=== PATIENT | male | born 1980 | race Caucasian/White ===

== ENCOUNTER → 2018-05-11 12:38 | Outpatient (CLI) | payer BC, SELFPAY ==
--- NOTE | 2018-05-11 12:41 | DI.US.S_ITS ---
PROCEDURE: US SCROTUM INDICATIONS: SCROTAL EDEMA TECHNIQUE: Real-time scanning was performed of the scrotum and testicles, with image documentation. Color and pulse Doppler interrogation was performed of both testicles. COMPARISON: None. FINDINGS: Right: Testicle is normal in size at 3.5 x 1.6 x 2.2 cm, and homogenous in echotexture. Epididymis is normal in overall size and morphology. No hydrocele or varicoceles. Overlying scrotal skin is normal in thickness. Left: Testicle is normal in size at 2.9 x 1.9 x 3.1 cm, and homogeneous in echotexture. Epididymis is normal in overall size and morphology. No hydrocele or varicoceles. Overlying scrotal skin is normal in thickness. Doppler: Color and pulse Doppler demonstrate normal and symmetric arterial flow in both testicles. There is a heterogeneous mass present within the midline of the scrotum and lateral alveolus indeterminate on the basis of this study measuring 9.9 x 5.5 8.3 cm. Findings could be related to fat-containing hernia. IMPRESSION: 1. Normal testicles. 2. Large mass within the mid scrotum as above which could be related to fat-containing hernia with extension of the fat-containing hernia into the left hemiscrotum. If indicated CT of the lower abdomen and pelvis could be performed. Dictated by: Marcelo PARRA Interpreted: Babatunde Gatica MD on 05/11/2018 at 13:55 Approved by: Babatunde Gatica M.D. on 05/11/2018 at 16:33
== END ==
PROVIDERS: Visit Provider Family Medicine
DX: N50.89 Other specified disorders of the male genital organs (principal)
CPT/HCPCS: 76870

== ENCOUNTER 2018-06-14 08:15 | Day surgery (SDC) | payer BC, SELFPAY ==
[2018-06-01 09:49] VITALS: BMI 24.9
[2018-06-14 08:42] VITALS: BP 114/79; PULSE 87; RESP 16; TEMP 37; O2SAT 98; BMI 24.7
[2018-06-14] MEDS: LACTATED RINGERS 1,000 ML 42 ML IV (08:50)
--- NOTE | 2018-06-14 09:16 | PM.PREOP ---
Pre-operative Note Interval Note Pre-op Check: Yes History & Physical Reviewed by Physician and Yes Exam Performed Changes: No
[2018-06-14] MEDS: MIDAZOLAM 2 MG/2 ML VIAL IV (09:22)
[2018-06-14] MEDS: CEFAZOLIN 2 GM/100 ML FROZ.PIGGY IV (09:25)
--- NOTE | 2018-06-14 09:27 | SUR.PREOP ---
midazolam given per order for anxiety, pt taken soon fter to or.
--- NOTE | 2018-06-14 09:47 | SUR.OPER ---
Supine on padded OR bed, head on pillow, arms secured on padded arm boards at <90 degrees abduction, legs uncrossed, safety belt at thigh, tape over blanket over lower legs.
[2018-06-14] MEDS: BUPIVACAINE 0.5% (PF) VIAL 30 ML INJ (09:53)
--- NOTE | 2018-06-14 10:56 | P.OP_ITS ---
Operative Date/Time/Diagnoses Date of procedure: 06/14/18 Time of procedure: 10:51 Pre-op diagnosis: Left inguinal hernia reducible Post-op diagnosis: same (Indirect left inguinal hernia) Procedure & Clinicians Procedure: Repair with plug and patch technique Same procedure as scheduled: Yes Indications: Symptomatic left inguinal hernia with sac extending into the scrotum. Surgeon: Spencer Ann Click Yes if Unassisted: Yes Anesthesia Type: General Operative Notes Findings: Large indirect sac containing omentum. The floor was quite weak and medially. Closure Type: primary Specimen(s): none sent Implants & Drains: Mesh Procedure in detail: The patient was placed supine on the operating room table and underwent general LMA anesthesia. He was prepped and draped in the usual fashion. A transverse incision was made overlying the internal ring and carried down to the level of the external oblique. The external oblique was opened parallel with its fibers through the external ring. The cord structures were elevated. The cremaster was opened proximally and search made for an indirect sac.[a large sac was found and opened. It contained a large amount of omentum which was reduced. The sac was dissected proximally to the level of the deep epigastric vessels were was suture ligated with 2 0 silk. Small amount of local was injected just above the tie. The stump was allowed to retract. A medium plug was crit placed in the defect created by the sac and tacked into place with interrupted Ethibond suture.]. The floor was examined and was found to be[ markedly attenuated.]. A patch was placed across the floor and tacked at the pubic tubercle, the posterior lamella of the anterior rectus sheath, the ilioinguinal ligament, and superior lateral to the cord. The opening was modified as necessary to prevent tight constriction of the cord. The cremaster was closed with 3 0 Polysorb. Sutures of 0 Tycron were used to secure the mesh. The external oblique was closed with a running 3 0 Polysorb. The subcu was closed with interrupted 4 0 Polysorb. The skin was closed with a running 4 0 Polysorb subcuticular stitch and Steri-Strips. Dressing was applied, the patient was awakened, and the patient was taken to the recovery area in good condition. Complications: none Condition: stable Disposition: PACU
[2018-06-14 10:58] VITALS: BP 116/88; PULSE 83; RESP 12; TEMP 36; O2SAT 96
[2018-06-14 11:03] VITALS: BP 116/81; PULSE 83; RESP 11; O2SAT 97
[2018-06-14] MEDS: MEPERIDINE 50 MG/ML 25 MG IV (11:04)
[2018-06-14 11:08] VITALS: BP 113/81; PULSE 82; RESP 12; TEMP 36.4; O2SAT 97
[2018-06-14 11:24] VITALS: BP 123/90; PULSE 82; RESP 16; TEMP 36; O2SAT 96
[2018-06-14] MEDS: OXYCODONE/ACETAMINOPHEN 5/325 TABLET 1 TAB PO (11:30)
[2018-06-14 11:46] VITALS: BP 119/84; PULSE 79; RESP 16; TEMP 36.1; O2SAT 98
== END 2018-06-14 11:49 | disposition home or self-care (01) ==
PROVIDERS: Visit Provider Specialist
PROC: (CPT 49505; principal; 2018-06-14 09:15)
DX: K40.90 Unilateral inguinal hernia, without obstruction or gangrene, not specified as recurrent (principal); Z72.0 Tobacco use; G43.909 Migraine, unspecified, not intractable, without status migrainosus
CPT/HCPCS: 49505; C1781; J0690; J1100; J2175; J2250; J2405; J2704; J3010

== ENCOUNTER 2019-10-15 12:31 | Emergency (ER) | payer BC, SELFPAY ==
[2019-10-15 12:35] VITALS: BP 116/78; PULSE 85; RESP 12; TEMP 36.9; O2SAT 99
--- NOTE | 2019-10-15 12:45 | ED.CHESTPAIN ---
HPI - Chest Pain General Chief Complaint: Chest Pain Stated Complaint: CHEST SHOULDER AND NECK PAIN Time Seen by Provider: 10/15/19 12:36 Source: patient Mode of arrival: Ambulatory Limitations: no limitations History of Present Illness HPI narrative: Patient comes emergency department complaining of pain under his left breast for about the last week. He states that it started when he woke up 1 morning about a week ago with a tight sharp pain going down the left neck and into his shoulder. He patient states that the pain spread to his chest wall, as well. He states that other than occasional bursts of pain, the neck pain has resolved, as has the shoulder pain. However, the pain under his left breast has persisted. He patient states it's worse with certain positions and sometimes with deep breaths. He denies a cough or fever. He denies shortness of breath, other than sometimes taking shallow breaths to avoid hurting his chest more. He he states it hurts more to move his arms certain ways. The patient denies any swelling or pain in his lower extremities. He states that he has no history of DVT or PE. He has not been ill with any respiratory symptoms lately. No other complaints at this time. No direct trauma to the area. No repetitive motion. Related Data Home Medications Medication Instructions Recorded Confirmed zolmitriptan 5 mg PO SEEINSTR PRN 06/01/18 06/27/18 Previous Rx's Medication Instructions Recorded citalopram 20 mg tablet 20 mg PO DAILY #30 tab 10/04/19 hydrocodone-acetaminophen 1 tab PO Q4H PRN #5 tab 10/15/19 Allergies Allergy/AdvReac Type Severity Reaction Status Date / Time sumatriptan [From Imitrex] AdvReac Severe Pain - Verified 04/26/19 09:16 back of neck cillins AdvReac Mild nausea Uncoded 04/26/19 09:16 Review of Systems Constitutional Constitutional: Denies chills, Denies fatigue, Denies fever(s), Denies frequent falls, Denies lethargy and Denies weakness Eyes Eyes: Denies change in vision, Denies eye discharge, Denies irritation and Denies loss of vision ENT Ears, Nose, Mouth, and Throat: Denies change in voice, Denies dizziness, Reports neck pain, Denies sore throat and Denies throat swelling Cardiovascular Cardiovascular: Reports chest pain, Denies irregular heart rhythm, Denies lightheadedness, Denies palpitations, Denies dyspnea, Denies dyspnea on exertion and Denies orthopnea Respiratory Respiratory: Denies cough, Denies dyspnea, Denies dyspnea on exertion and Denies wheezing Gastrointestinal Gastrointestinal: Denies abdominal pain, Denies change in bowel habits, Denies diarrhea, Denies nausea and Denies vomiting Genitourinary Genitourinary: Denies hematuria, Denies flank pain, Denies urinary incontinence and Denies urinary urgency Musculoskeletal Musculoskeletal: Denies back pain, Denies muscle weakness, Reports neck pain, Denies numbness and Denies tingling Integumentary/Breasts Skin/Breast: Denies pruritus, Denies erythema, Denies rash and Denies wounds Neurologic Neurologic: Denies behavioral changes, Denies confusion, Denies dizziness, Denies frequent falls, Denies loss of vision, Denies numbness, Denies tingling and Denies weakness Psychiatric Psychiatric: Denies anxiety, Denies behavioral changes, Denies confusion, Denies depression, Denies homicidal ideation and Denies suicidal ideation Endocrine Endocrine: Denies fatigue, Denies flushing and Denies palpitations Hematologic/Lymphatic Hematologic/Lymphatic: Denies easy bruising Allergic/Immunologic Allergic/Immunologic: Denies urticaria, Denies throat swelling and Denies wheezing Patient History Medical History Left inguinal hernia (Acute) Migraines (Chronic 1999) Scrotal swelling (Chronic) Surgical History No history of previous surgery (Chronic) Family History Mother Breast cancer Social History household members: family Smoking Status: Current every day smoker Smokeless tobacco user: other (Vape) alcohol intake: former substance use type: does not use Smoking Status: Current every day smoker Substance Use Type: does not use Exam Initial Vital Signs Initial Vital Signs: Vital Signs Temperature 98.5 F 10/15/19 12:35 Pulse Rate 85 10/15/19 12:35 Respiratory Rate 12 10/15/19 12:35 Blood Pressure 116/78 10/15/19 12:35 Pulse Oximetry 99 10/15/19 12:35 Const General: cooperative and well developed Nutritional Appearance: well nourished Orientation: alert, awake, oriented x3 and not confused [facility] Head: normocephalic and atraumatic Ears: external ears normal Nose: external nose normal and No nasal discharge Face and sinus: face symmetric and No dry mucous membranes Mouth: oral mucosae normal and moist mucous membranes Teeth and gingiva: dentition normal Eyes General: appearance normal, both eyes and all related structures Eyelids: eyelids normal Conjunctivae: conjunctivae normal Sclera: sclerae normal Pupils: PERRL EOM: EOM intact bilaterally Neck Neck: normal visual inspection, trachea midline, No lymphadenopathy, No midline deformity and No JVD Lymphatic: No lymphedema Chest Chest: tenderness (Anterior, midclavicular line and lateral; reproduces pain. ) Other: Tenderness involves 5th intercostal space Resp Effort & Inspection: normal respiratory effort, able to speak in complete sentences, no respiratory distress and no use of accessory muscles Auscultation: clear to auscultation bilaterally, no rales, no rhonchi and no wheezes Cardio Rate: regular rate Rhythm: regular rhythm Heart Sounds: no click, no gallops, no murmurs and no rubs Pulses: normal peripheral pulses GI Inspection: non-distended Palpation: soft, no hepatosplenomegaly, No guarding, No pulsatile mass and No tender Auscultation: normal bowel sounds Back/Spine/Pelvis Back: No CVA tenderness Cervical Spine: cervical ROM normal and No pain with cervical ROM Thoracic/Lumbar Spine: thoracic and lumbar spine normal to inspection Skin General: no rashes or lesions noted, No jaundice and No petechiae Neuro General: alert, oriented x3, gait normal and no focal motor deficits Speech: speech normal Extrem General: full ROM, no clubbing, cyanosis or edema, no pedal edema and no calf tenderness Psych Appearance: well kempt Mental Status: mental status grossly normal Attitude: cooperative Thought Content: normal and suicidality Judgment: judgment good Course Course Course Narrative: The patient was treated symptomatically with Toradol in the emergency department. His EKG was normal. I discussed with him that his pain and exam findings are most indicative of a musculoskeletal source. As such, I do not feel that blood work is indicated. I have offered the patient a chest x-ray, which she declines, stating he has not had cough or fever and he does not feel that he needs this. We've discussed home management of the symptoms, as well as the usual indications for return. Orders Ordered: Discontinued Medications Ketorolac Tromethamine (Toradol) 30 mg IV NOW ONE Stop: 10/15/19 13:05 Last Admin: 10/15/19 13:11 Dose: 30 mg Documented by: Vital Signs Vital signs: Vital Signs - 8 hr 10/15/19 12:35 10/15/19 13:16 Temperature 98.5 F Pulse Rate 85 83 Respiratory Rate 12 18 Blood Pressure 116/78 112/89 Pulse Oximetry 99 98 MDM - Chest Pain Medical Records Data Attestation: I reviewed the patient's medical records. Lab Data Attestation: I reviewed the patient's lab results. ECG Data Attestation: I personally reviewed and interpreted this ECG as follows: (See below) Interpretation: Twelve lead EKG performed October 15, 2019 at 12:43 p.m., as follows: Regular ventricular rhythm with a rate of 88 beats per minute AL intervals 155 milliseconds QRS duration 86 millisecond QTC interval of [address] T wave changes Interpretation: Normal sinus rhythm; no signs of acute ischemia as interpreted by ED MD. Discharge Plan Departure Patient Disposition: Home Clinical Impression: Acute chest wall pain Discharge Date/Time: 10/15/19 13:24 Instructions: DI for Costochondritis Activity Restrictions/Additional Instructions: Your EKG looks good. The pain your describing is most consistent with a musculoskeletal source, and as such, may be treated symptomatically and expected to resolve on its own. Please get rest tomorrow and take the pain medication, along with ibuprofen 600 mg every 6 hours. If you develop fevers and chills, shortness of breath, or productive cough, or if her pain has not abated at all in the next week, you should be re-evaluated. Prescriptions: New hydrocodone-acetaminophen 5-325 mg tablet 1 tab PO Q4H PRN (Reason: pain) Qty: 5 RF: 0 No Action citalopram [Celexa] 20 mg tablet 20 mg PO DAILY Qty: 30 RF: 0 zolmitriptan 5 mg tablet 5 mg PO SEEINSTR PRN (Reason: Migraine Headache) RF: 0 Referrals: [facility] [Provider Group] Stand Alone Forms: Work Release Note
[2019-10-15] MEDS: KETOROLAC 60 MG/2 ML VIAL 30 MG IV (13:11)
[2019-10-15 13:16] VITALS: BP 112/89; PULSE 83; RESP 18; O2SAT 98
== END 2019-10-15 13:24 | disposition home or self-care (01) ==
PROVIDERS: Emergency Provider Emergency Medicine
DX: R07.89 Other chest pain (principal)
CPT/HCPCS: 93005; 96374; 99282; 99284; J1885

== ENCOUNTER → 2020-12-18 13:54 | Outpatient (CLI) | payer BC, SELFPAY ==
[2020-12-18 14:34] LABS: Add Manual Diff / Slide Review NO; Basophils Absolute Auto 0 /uL (0-100); Basophils Percent Auto 0.5 % (0-2); Eosinophils Absolute Auto 0 /uL (0-450); Hematocrit 42.5 % (41-53); Hemoglobin 14.4 g/dL (13.5-17.5); Lymphocytes Absolute Auto 1100 /uL (1100-4500); Lymphocytes Percent Auto 30.3 % (25-40); Mean Corpuscular HGB Conc 33.9 % (30-36); Mean Corpuscular Hemoglobin 31.2 PG (26-34); Mean Corpuscular Volume 92.1 fL (80-100); Monocytes Absolute Auto 400 /uL (0-900); Monocytes Percent Auto 12.5 % (3-14); Neutrophils Absolute Auto 1900 /uL (1500-7000); Neutrophils Percent Auto 55.7 % (50-75); Platelet Count 154 X10^3/uL (150-400); Red Blood Cell Count 4.62 X10^6/uL (4.5-5.9); Red Cell Distribution Width 12.9 % (11.6-14.8); White Blood Cell Count 3.5 X10^3/uL (4.5-11.0)
[2020-12-18 15:00] LABS: Alanine Aminotransferase 44 IU/L (<50); Albumin 4.6 g/dL (3.5-5.0); Albumin Globulin Ratio 1.7 (1.0-2.8); Alkaline Phosphatase 54 U/L (38-126); Aspartate Aminotransferase 31 IU/L (17-59); BUN Creatinine Ratio 16.5 (6-22); Bilirubin Total 1.2 mg/dL (0.2-1.3); Blood Urea Nitrogen 13 mg/dL (9-20); Calcium 9.3 mg/dL (8.4-10.2); Carbon Dioxide 27 mmol/L (22-32); Chloride 104 mmol/L (98-107); Cholesterol 206 mg/dL (140-199); Estimated Glomerular Filt Rate > 60.0 mL/min (>60); Globulin 2.7 g/dL (1.7-4.1); Glucose 84 mg/dL (70-100); HDL Cholesterol 33 mg/dL (40-60); HEMOLYSIS < 15 (0-50); LDL Cholesterol Calculated 151 mg/dL (<100); Potassium 3.9 mmol/L (3.4-5.1); Sodium 140 mmol/L (137-145); Total Protein 7.3 g/dL (6.3-8.2); Triglycerides 108 mg/dL (35-150)
[2020-12-18 15:27] LABS: Thyroid Stimulating Hormone 0.992 uIU/mL (0.47-4.68)
[2020-12-18 15:29] LABS: Prostate Specific Antigen 1.29 ng/mL (0.10-4.00)
== END ==
PROVIDERS: PCP Family Medicine; Referring Provider Family Medicine; Visit Provider Family Medicine
DX: Z00.00 Encounter for general adult medical examination without abnormal findings (principal); Z80.42 Family history of malignant neoplasm of prostate
CPT/HCPCS: 36415; 80053; 80061; 84153; 84443; 85025